=== PATIENT | male | born 1935 | race Caucasian/White ===

== ENCOUNTER → 2020-01-18 | Outpatient (REF) | payer MEDICARE | LOC: M LAB REF 17:08 | PROVIDERS: ATTEND Dermatology | DX: C44.319 Basal cell carcinoma of skin of other parts of face (principal); L81.4 Other melanin hyperpigmentation; L57.8 Other skin changes due to chronic exposure to nonionizing radiation ==

== ENCOUNTER → 2023-07-27 | Outpatient (REF) | payer MEDICARE, MEDICAID | LOC: M SFHCDERM 08:11 | PROVIDERS: ATTEND Nurse Practitioner Family | DX: C44.329 Squamous cell carcinoma of skin of other parts of face (principal) ==